=== PATIENT | male | born 1975 | race Caucasian/White ===

== ENCOUNTER 2019-08-10 08:01 | Inpatient (IN) | payer SELFPAY ==
[~2019-08-10] VITALS: Ht 172.7 cm; Wt 123.7 kg
[2019-08-10] MEDS ORDERED: ONDANSETRON PF 4 MG/2 ML VIAL. IVP ONE ×2 (08:15→09:30)
[2019-08-10] MEDS ORDERED: IV NORMAL SALINE 1,000ML 1,000 ML IV ONE (08:15)
--- NOTE | 2019-08-10 08:25 | PHYS DOC ---
General Adult EDM: Chief Complaint: ABDOMINAL PAIN HPI: HPI: 43-year-old male presents with epigastric abdominal pain. He has been having worsening pain for last 3 days. He came in today because the pain became severe last night. Patient has not eaten anything in 3 days. He is a daily vodka drinker. He stopped drinking at 1 PM yesterday because of the epigastric pain. No history of pancreatitis. No history of significant GERD. He denies fever chills. He rates the current pain a 10 out of 10. It is sharp and stabbing. He also has a burning in his throat. He has had several episodes of vomiting. Review of Systems: Review of Systems: Constitutional: Denies fever or chills Eyes: Denies change in visual acuity HENT: Denies nasal congestion or sore throat Respiratory: Denies cough or shortness of breath Cardiovascular: Denies chest pain or edema GI: Epigastric abdominal pain, nausea, vomiting. Denies bloody stools or diarrhea. : Denies dysuria Musculoskeletal: Denies back pain or joint pain Integument: Denies rash Neurologic: Denies headache, focal weakness or sensory changes Endocrine: Denies polyuria or polydipsia Lymphatic: Denies swollen glands Psychiatric: Denies depression or anxiety Heart Score: Risk Factors: Risk Factors: DM, Current or recent (<one month) smoker, HTN, HLP, family history of CAD, obesity. Risk Scores: Score 0 - 3: 2.5% MACE over next 6 weeks - Discharge Home Score 4 - 6: 20.3% MACE over next 6 weeks - Admit for Clinical Observation Score 7 - 10: 72.7% MACE over next 6 weeks - Early Invasive Strategies Current Medications: Current Meds: Current Medications Medications (Trade) Dose Ordered Sig/[facility] Start Time Stop Time Status Last Admin Dose Admin Ondansetron HCl (Zofran) 4 mg 1X ONCE 08/10/19 08:15 08/10/19 08:16 UNV Sodium Chloride 1,000 ml @ 1,000 mls/hr 1X ONCE 08/10/19 08:15 08/10/19 09:14 UNV Physical Exam: PE: Constitutional: Well developed, well nourished, no acute distress, non-toxic appearance. [] HENT: Normocephalic, atraumatic, bilateral external ears normal, oropharynx moist, no oral exudates, nose normal. [] Eyes: PERRLA, EOMI, conjunctiva normal, no discharge. [] Neck: Normal range of motion, no tenderness, supple, no stridor. [] Cardiovascular: Heart rate 104, regular rhythm, no murmur [] Lungs & Thorax: Bilateral breath sounds clear to auscultation [] Abdomen: Bowel sounds normal, soft, epigastric tenderness, no masses, no pulsatile masses. [] Skin: Warm, diaphoretic, no erythema, no rash. [] Back: No tenderness, no CVA tenderness. [] Extremities: No tenderness, no cyanosis, no clubbing, ROM intact, no edema. [] Neurologic: Alert and oriented X 3, normal motor function, normal sensory function, no focal deficits noted. [] Psychologic: Affect normal, judgement normal, mood normal. [] EKG: EKG: Sinus tachycardia, rate 101, normal axis, no ST elevations or depressions. [] Radiology/Procedures: Radiology/Procedures: [] Impressions: AP chest x-ray HISTORY: Epigastric abdominal pain. FINDINGS: Heart size normal. Mediastinal silhouette is normal. No pneumothorax, pulmonary opacities or pleural effusions. Old healed right clavicle fracture deformity. IMPRESSION: No acute process. Electronically signed by: Martin Sweet MD (08/10/2019 8:44 AM) [facility] [place]CT[place] AND SIGNED BY: MARTIN SWEET MD DATE: 08/10/19 0844 CC: ANTONIETTA BOWMAN DO; PCP,NO ~ CT abdomen and pelvis with contrast PQRS statement: CT scans at this facility use dose reduction including either automated exposure control, iterative reconstructions, and /or weight based radiation dosing via mA and kV modification when appropriate to reduce radiation dose to as low as reasonably achievable. Contrast: 75 mL Omnipaque 300 intravenous contrast. HISTORY: Abdominal pain. Abdomen findings: Lung bases unremarkable. Lower lumbar disc disease with disc bulges and disc osteophyte with spinal canal stenoses and neural foraminal stenoses. Hypodense liver likely fatty. Kidneys, adrenals, spleen, gallbladder unremarkable. There is diffuse pancreatic edematous enlargement and peripancreatic stranding edema. Mesenteric and splenic vessels and straight patent contrast enhancement. No pancreatic mass or pseudocyst evident. No pancreatic necrosis evident with intact enhancement of the gland present. No obstruction or inflammation the GI tract. Appendix is negative. No enlarged adenopathy. Pelvis findings: Bladder, prostate, rectum and bones are unremarkable. IMPRESSION: 1. Acute pancreatitis as described above. 2. Appendix is negative. Electronically signed by: Martin Sweet MD (08/10/2019 9:41 AM) [facility] [place]CT[place] AND SIGNED BY: MARTIN SWEET MD DATE: 08/10/19 0941 CC: ANTONIETTA BOWMAN DO; PCP,NO ~ Course & Med Decision Making: Course & Med Decision Making Pertinent Labs and Imaging studies reviewed. (See chart for details) The patient's labs are significant for a lipase of just under 5000. Chest x-ray is unremarkable. EKG is unremarkable. Troponin is negative. CT scan is pending. The patient will be admitted for pancreatitis. I spoke with Dr. Gracia about the patient and he has accepted him for admission. [] Dragon Disclaimer: Dragon Disclaimer: This electronic medical record was generated, in whole or in part, using a voice recognition dictation system. Departure Departure: Impression: Primary Impression: Pancreatitis, alcoholic, acute Qualified Codes: K85.20 - Alcohol induced acute pancreatitis without necrosis or infection Disposition: ADMITTED INPATIENT Admitting Physician: Susan Gracia Condition: STABLE Referrals: PCP,NO (PCP) Justification of Admission: Justification of Admission: Justification of Admission Dx: Yes Comments: ANTONIETTA Ly DO Aug 10, 2019 08:25
[2019-08-10 08:46] LABS: BASO # 0.1 x10^3/uL (0.0-0.2); BASO % 1 % (0-3); EOS # 0.1 x10^3/uL (0.0-0.7); EOS % 1 % (0-3); HEMATOCRIT 51.3 % (39.0-53.0); HEMOGLOBIN 17.9 g/dL (13.0-17.5); LYMPH # 1.5 x10^3/uL (1.0-4.8); LYMPH % 15 % (24-48); MEAN CORPUSCULAR HEMOGLOBIN 34 pg (25-35); MEAN CORPUSCULAR HGB CONC 35 g/dL (31-37); MEAN CORPUSCULAR VOLUME 98 fL (79-100); MONO # 0.9 x10^3/uL (0.0-1.1); MONO % 9 % (0-9); NEUT # 7.4 x10^3uL (1.8-7.7); NEUT % 74 % (31-73); PLATELET COUNT 228 x10^3/uL (140-400); RED BLOOD COUNT 5.26 x10^6/uL (4.30-5.70); RED CELL DISTRIBUTION WIDTH 13.9 % (11.5-14.5)
--- NOTE | 2019-08-10 08:47 | RAD ---
AP chest x-ray HISTORY: Epigastric abdominal pain. FINDINGS: Heart size normal. Mediastinal silhouette is normal. No pneumothorax, pulmonary opacities or pleural effusions. Old healed right clavicle fracture deformity. IMPRESSION: No acute process. Electronically signed by: Martin Sweet MD (08/10/2019 8:44 AM) [facility]
[2019-08-10 08:52] LABS: CALCIUM 9.8 mg/dL (8.5-10.1); CREATININE 1.4 mg/dL (0.7-1.3); GFR 55.8; POTASSIUM 4.3 mmol/L (3.5-5.1)
[2019-08-10 08:59] LABS: ALBUMIN 4.3 g/dL (3.4-5.0); ALBUMIN/GLOBULIN RATIO 1.1 (1.0-1.7); TOTAL PROTEIN 8.2 g/dL (6.4-8.2)
[2019-08-10 09:04] LABS: TOTAL BILIRUBIN 1.9 mg/dL (0.2-1.0)
[2019-08-10] MEDS ORDERED: IOHEXOL 300 MG/ML 75 ML VIAL. IV ONE (09:15)
[2019-08-10] MEDS ORDERED: HYDROmorphone PF 1 MG/ML DISP.SYRIN IV ONE (09:30)
--- NOTE | 2019-08-10 09:44 | RAD ---
CT abdomen and pelvis with contrast PQRS statement: CT scans at this facility use dose reduction including either automated exposure control, iterative reconstructions, and /or weight based radiation dosing via mA and kV modification when appropriate to reduce radiation dose to as low as reasonably achievable. Contrast: 75 mL Omnipaque 300 intravenous contrast. HISTORY: Abdominal pain. Abdomen findings: Lung bases unremarkable. Lower lumbar disc disease with disc bulges and disc osteophyte with spinal canal stenoses and neural foraminal stenoses. Hypodense liver likely fatty. Kidneys, adrenals, spleen, gallbladder unremarkable. There is diffuse pancreatic edematous enlargement and peripancreatic stranding edema. Mesenteric and splenic vessels and straight patent contrast enhancement. No pancreatic mass or pseudocyst evident. No pancreatic necrosis evident with intact enhancement of the gland present. No obstruction or inflammation the GI tract. Appendix is negative. No enlarged adenopathy. Pelvis findings: Bladder, prostate, rectum and bones are unremarkable. IMPRESSION: 1. Acute pancreatitis as described above. 2. Appendix is negative. Electronically signed by: Martin Sweet MD (08/10/2019 9:41 AM) [facility]
[2019-08-10] MEDS ORDERED: ONDANSETRON PF 4 MG/2 ML VIAL. IVP PRN ×2 (10:45→14:00)
[2019-08-10] MEDS ORDERED: HYDROmorphone PF 1 MG/ML DISP.SYRIN IV PRN (10:45)
[2019-08-10] MEDS ORDERED: IV DEXTROSE 5% - 0.9 % NACL 1,000 ML IV ONE (10:45)
--- NOTE | 2019-08-10 12:14 | NUR ---
The patient, DIAMOND PIMENTEL, 43 y/o, M admitted by JANEL RICHARD MD, was given written information regarding hospital policies, unit procedures and contact persons. Valuables were checked and left with patient. Pt complains of pain and asks for something less strong than Dilaudid and reports it is not lasting long enough to help. Pt is Alert and Oriented x 4. Pt requested use of bathroom and was directed to the toilet, pt's gait is steady. Pt reports his last drink was at noon yesterday and usually drinks a pint of vodka and 6 beers daily. PT is pleasant at this time. Alcohol Withdraw Protocol orders placed. Will CTM.
[2019-08-10] MEDS ORDERED: cloNIDine HCL 0.1 MG TABLET PO PRN (12:30)
[2019-08-10] MEDS ORDERED: diphenhydrAMINE 50 MG/ML VIAL IVP PRN (12:30)
[2019-08-10] MEDS ORDERED: HALOPERIDOL LACT 5 MG/ML VIAL. IM PRN (12:30)
[2019-08-10] MEDS ORDERED: HYDROcodone/APAP 5/325MG 1 TAB TABLET PO PRN (14:00)
[2019-08-10] MEDS ORDERED: LABETALOL 20 MG/4 ML DISP.SYRIN. IVP PRN (14:00)
[2019-08-10] MEDS ORDERED: PROCHLORPERAZINE 10 MG/2 ML VIAL. IVP PRN (14:00)
[2019-08-10 14:25] VITALS: BP 174/111
[2019-08-10] MEDS ORDERED: LABETALOL 100 MG/20 ML VIAL. IV ONE (14:35)
[2019-08-10] MEDS: HYDROmorphone PF 2 MG/ML VIAL IV PRN ×3 (14:39→22:03)
[2019-08-10] MEDS: NICOTINE 21MG PATCH. TD SCH (14:39)
[2019-08-10] MEDS ORDERED: chlordiazePOXIDE HCL 25 MG CAPSULE PO PRN (16:45)
[2019-08-10] MEDS: chlordiazePOXIDE HCL 25 MG CAPSULE PO PRN (17:06)
--- NOTE | 2019-08-10 18:42 | NUR ---
pt talked to about poc and that he is more than likely going to detox soon and will need to decide if he is seeking care to help stop drinking. PT is starting to be shaky and continues to have epigastric pain. PT reports that his drinks etoh as well. Sarah BOLANOS
--- NOTE | 2019-08-10 19:01 | HP ---
ADMIT DATE: 08/10/2019 HISTORY OF PRESENT ILLNESS: The patient is a 43-year-old male patient who presented to the Emergency Room complaining of severe epigastric abdominal pain that has been worsening for the last 3 days. He came in today because the pain became severe. He has not eaten anything for the last 3 days. He is a daily vodka drinker. He stopped drinking at 1:00 p.m. yesterday because of epigastric pain. He has never had history of pancreatitis. No history of any significant gastroesophageal reflux disease. He rated his pain 10/10, sharp, stabbing. He also had several episodes of vomiting, but no hematemesis. He was evaluated in the Emergency Room and was found to have markedly elevated serum lipase of 4995. He has also impaired kidney function with creatinine 1.4. His blood sugar was high at 163 and AST, ALT, alkaline phosphatase are slightly elevated; however, his prothrombin time and INR, aPTT were normal. He was clearly dehydrated with hemoglobin of 17.9, hematocrit 51 with normal white cell count and platelets. He was admitted with alcohol-induced pancreatitis. PAST MEDICAL HISTORY: Unremarkable. PAST SURGICAL HISTORY: Also unremarkable. ALLERGIES: He has no known drug allergies. MEDICATIONS: He is currently on no medication. FAMILY HISTORY: Unremarkable. SOCIAL HISTORY: He is , has 2 children of his own and 2 stepsons. He smokes little less than a pack a day. He drinks pint of vodka, 6 packs of beer and has been doing this consistently for the last 5 years, although he started drinking when he was 17 years old. He describes his ___. She is also a heavy drinker. 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 PHYSICAL EXAMINATION: GENERAL: On arrival to the Emergency Room, the patient was clearly distressed. There was no pallor, jaundice, cyanosis or thyromegaly. No jugular venous distention. No lower limb edema. VITAL SIGNS: Her heart rate was 105, blood pressure was 167/124, temperature was 98.1, respiratory rate 26 and oxygen saturation was 98%. HEAD, EYES, EARS, NOSE AND THROAT: Showed normocephalic, atraumatic. NECK: Supple. CARDIAC: Normal first and second heart sounds. No gallop or murmur. ABDOMEN: Distended. Tenderness mostly in the epigastric area. No guarding or rigidity. No organomegaly. All hernial orifice intact. Bowel sounds normal. NEUROLOGIC: He is awake, alert, oriented x 3 with normal motor and sensory function. Affect, judgment and mood were normal. IMAGING: His EKG showed he was in sinus tachycardia with a heart rate of 101 with no evidence of ST segment elevation or depression. His chest x-ray showed the heart size is normal, mediastinal silhouette is normal. No pneumothorax, pulmonary opacities or pleural effusion, has old healed right clavicle fracture deformity. CT scan of the abdomen and pelvis showed that the patient's lung bases are unremarkable. The lower lumbar disk disease with disk bulges and disk osteophyte, spinal canal stenosis and neural foraminal stenosis, has hypodense liver, likely fatty, kidneys, adrenals, spleen, gallbladder unremarkable. There is diffuse pancreatic edematous enlargement and peripancreatic stranding edema, mesenteric and splenic vessels are straight, patent, contrast, enhancement. No pancreatic masses or pseudocyst evident. No pancreatic necrosis evident with intact enhance of the gland present. No obstruction or inflammation of GI tract. The appendix is negative. No enlarged lymphadenopathy. The pelvis showed bladder, prostate, rectum and bones are unremarkable. LABORATORY DATA: Showed a white cell count of 10,000, hemoglobin 18, hematocrit 51, MCV 98 and platelet count of 228,000. His serum sodium was 137, potassium 4.3, chloride 99, bicarbonate 29, anion gap of 9, BUN 10, creatinine 1.4, estimated GFR was 55 mL per minute. His glucose 163, calcium was 9.8. Total bilirubin, AST and ALT are elevated. Alkaline phosphatase is normal. His total protein was 8.2, albumin was 4.3. Serum lipase was 4995. ASSESSMENT AND PLAN: In summary, this is a 43-year-old male patient who was admitted with acute pancreatitis, alcohol-induced. He has also secondary erythrocytosis with hemoglobin of 18, hematocrit of 50, likely due to persistent hypoxemia. He has also morbid obesity and likely obstructive sleep apnea as he weighs 122 kilograms and his body mass index of 41 kilograms square meter. The patient was admitted and was kept n.p.o., continue with IV fluid, pain medications. He has received one banana bag. He is now on a chlordiazepoxide and he is on alcohol withdrawal protocol. We will repeat all his lab work tomorrow and hopefully once his serum lipase normalized, we can start him on a clear liquid and advance as tolerated. JANEL RICHARD MD DR: MIKAELA/nicolas JOB#: [id number] / [id number]
[2019-08-10 19:30] VITALS: BP 140/92
[2019-08-10] MEDS: IV DEXTROSE 5% - 0.9 % NACL 1,000 ML IV SCH (19:42)
[2019-08-10] MEDS: LORazepam 1 MG TABLET PO PRN (19:50)
--- NOTE | 2019-08-10 19:58 | EKG ---
[address] [address] Test Date: 2019-08-10 Test Time: 08:24:29 Pat Name: DIAMOND PIMENTEL Department: Room: [facility] 1 Gender: M Compliance Manager: SINDY : 1975 Requested By: ANTONIETTA BOWMAN Order Number: [id number] Reading MD: Tony Goel Measurements Intervals [place] Rate: 101 P: 47 MO: 132 QRS: 59 QRSD: 92 T: 31 QT: 328 QTc: 426 Interpretive Statements SINUS TACHYCARDIA Electronically Signed On 09-02-2019 10:10:49 CDT by Tony Goel
[2019-08-10 20:00] VITALS: BP 134/91
[2019-08-10 20:52] VITALS: BP 122/88
[2019-08-10 22:00] VITALS: BP 143/86
[2019-08-10 23:00] VITALS: BP 126/93
--- NOTE | 2019-08-10 23:09 | NUR ---
Pt desats on room air. This nurse keeps reminding patient to keep the nasal cannula in. Pt verbalizes understanding. Will continue to monitor.
[2019-08-11] VITALS (16 sets, daily range): BP systolic 98–157; BP diastolic 66–108
[2019-08-11] MEDS: LORazepam 1 MG TABLET PO PRN ×5 (02:30→16:57)
[2019-08-11] MEDS: HYDROmorphone PF 2 MG/ML VIAL IV PRN ×3 (05:02→20:40)
[2019-08-11 07:14] LABS: HEMATOCRIT 46.5 % (39.0-53.0); HEMOGLOBIN 15.9 g/dL (13.0-17.5); RED BLOOD COUNT 4.73 x10^6/uL (4.30-5.70); RED CELL DISTRIBUTION WIDTH 13.3 % (11.5-14.5); WHITE BLOOD COUNT 11.3 x10^3/uL (4.0-11.0)
[2019-08-11 07:26] LABS: ALBUMIN 3.4 g/dL (3.4-5.0); CALCIUM 8.6 mg/dL (8.5-10.1); CREATININE 1.2 mg/dL (0.7-1.3); GFR 66.7; POTASSIUM 4.1 mmol/L (3.5-5.1); TOTAL BILIRUBIN 2.5 mg/dL (0.2-1.0); TOTAL PROTEIN 6.9 g/dL (6.4-8.2)
[2019-08-11] MEDS: HYDROcodone/APAP 5/325MG 1 TAB TABLET PO PRN ×3 (08:22→22:20)
[2019-08-11] MEDS: MVI, ADULT NO.4 WITH VIT K 10 ML, THIAMINE INJ 100 MG, FOLIC ACID INJ 1 MG in IV NORMAL... IV SCH (09:09)
[2019-08-11] MEDS: IV DEXTROSE 5% - 0.9 % NACL 1,000 ML IV SCH ×2 (09:11→22:15)
[2019-08-11] MEDS: NICOTINE 21MG PATCH. TD SCH (09:14)
--- NOTE | 2019-08-11 12:00 | NUR ---
PT WOKE UP AND TRIED TO STAND UP AND URINATED IN HIS PANTS, SO THIS NURSE TOOK HIM TO THE TOILET, AND CHANGED HIS PANTS WHILE HE WAS AWAKE.
[2019-08-11] MEDS ORDERED: BISACODYL 10 MG SUPP.RECT PR PRN (16:15)
--- NOTE | 2019-08-11 19:05 | PN ---
DATE: 08/11/2019 SUBJECTIVE: The patient is almost resting almost flat in bed, in no apparent distress. He denied any nausea, vomiting, abdominal pain is well controlled. He did not have any bowel movement for the last 3 days. His lab work showed that his serum lipase is down from almost 5000 to 3170. His liver enzymes are trending down. PHYSICAL EXAMINATION: GENERAL: When I saw him this afternoon, he looked well and was clearly in no apparent respiratory distress. No pallor, jaundice or cyanosis. No lymphadenopathy, no thyromegaly. No jugular venous distention. No lower limb edema. VITAL SIGNS: Her heart rate was 102, blood pressure was 149/99, temperature 98.6, respiratory rate was 18 and oxygen saturation was 96%. The rest of clinical exam is stable. His intake over the last 24 hours was 1050, output was 275. LABORATORY DATA: Showed a white cell count of 11,300, hemoglobin 15, hematocrit 46, MCV 98 and platelet count of 177,000. His chemistry showed a serum sodium 138, potassium 4.1, chloride 103, bicarbonate 29, anion gap of 6, BUN 10, creatinine 1.2, estimated GFR was 66 mL per minute. His glucose was 138, calcium was 8.6. Total bilirubin 2.5. AST, ALT are elevated. Alkaline phosphatase is normal. His total protein was 6.9, albumin 3.4. Lipase was 3170. ASSESSMENT: 1. Alcohol-induced pancreatitis. 2. Alcohol-induced hepatitis. 3. Alcoholism, alcohol withdrawal 4. Morbid obesity and probably obstructive sleep apnea. JANEL RICHARD MD DR: MIKAELA/nicolas JOB#: [id number] / [id number]
[2019-08-12] MEDS: HYDROmorphone PF 2 MG/ML VIAL IV PRN (01:17)
[2019-08-12] MEDS ORDERED: dilTIAZem 25 MG/5 ML VIAL IVP ONE ×2 (01:51→02:00)
[2019-08-12] MEDS ORDERED: dilTIAZem VIAL 125 MG in IV NORMAL SALINE 100ML 100 ML IV PRN (02:00)
[2019-08-12 02:08] VITALS: BP 145/98
[2019-08-12] MEDS: LORazepam 1 MG TABLET PO PRN (02:39)
--- NOTE | 2019-08-12 05:27 | EKG ---
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
--- NOTE | 2019-08-12 05:28 | EKG ---
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
[2019-08-12] MEDS: HYDROcodone/APAP 5/325MG 1 TAB TABLET PO PRN (05:57)
[2019-08-12 06:01] VITALS: BP 161/95
[2019-08-12 06:29] LABS: ALBUMIN 3.1 g/dL (3.4-5.0); ALBUMIN/GLOBULIN RATIO 0.8 (1.0-1.7); CALCIUM 8.6 mg/dL (8.5-10.1); GFR 82.3; POTASSIUM 4.3 mmol/L (3.5-5.1); TOTAL BILIRUBIN 1.7 mg/dL (0.2-1.0)
[2019-08-12] MEDS: IV DEXTROSE 5% - 0.9 % NACL 1,000 ML IV SCH (08:07)
[2019-08-12] MEDS: NICOTINE 21MG PATCH. TD SCH (08:07)
[2019-08-12] MEDS: chlordiazePOXIDE HCL 25 MG CAPSULE PO PRN (08:16)
[2019-08-12] MEDS: MVI, ADULT NO.4 WITH VIT K 10 ML, THIAMINE INJ 100 MG, FOLIC ACID INJ 1 MG in IV NORMAL... IV SCH (09:05)
--- NOTE | 2019-08-12 10:44 | NUR ---
Patient questioning on if he will be able to go home this evening, states that he has a little abdominal pain but nothing like before. States he was having nausea and vomiting and hasnt eaten in 4 days, patient tried 2 juices this morning and tolerated well. Diet advanced to clear liquid diet. Discussed situation that happened last night with elevated HR and need for oxygen, questioned if he has had a sleep study before and if he would be interested. Patient stated "I have a lot going on right now with my drinking and im not intersted in that." Awaiting for DR Gracia to see patient.
[2019-08-12 12:49] VITALS: BP 162/110
--- NOTE | 2019-08-12 14:42 | NUR ---
Patient standing out at nurses station, states he is ready to go and removed IV and telemetry leads. Dr Gracia here at this time and discussing discharge plan with patient.
--- NOTE | 2019-08-12 14:45 | NUR ---
Patient verbalized discharge instructions give, prescription given for ativan to help with detox. Patient given instructions on sleep apnea and pancreatitis and educated on trying to quit drinking. Patient ambulated off unit with staff at this time.
[2019-08-12] MEDS ORDERED: LORA-254 PO (14:46)
--- NOTE | 2019-08-12 18:23 | DS ---
DATE OF DISCHARGE: 08/12/2019 HOSPITAL COURSE: The patient is a 43-year-old male patient who was admitted with severe abdominal pain, was diagnosed with acute alcohol-induced pancreatitis. His serum lipase was almost 5000. He was initially kept n.p.o. and finally he was advanced his diet. His lipase came down steadily and today was 764. He apparently went into an episode of acute atrial fibrillation with rapid ventricular response, treated with a loading dose of Cardizem and a drip and converted quickly to sinus rhythm. Apparently had these episodes before. His body mass index is 41 kilograms per square meter and has clinically obstructive sleep apnea as he desaturates at night time, and he remained hemodynamically stable with improved pain and acute pancreatitis, a decision was made to discharge him home on a tapering dose of Ativan to assist with his alcohol withdrawal. PHYSICAL EXAMINATION: GENERAL: When I saw him this morning, he looked well and was clearly in no apparent respiratory distress. No pallor, jaundice, cyanosis, or thyromegaly. No jugular venous distension. No lower limb edema. VITAL SIGNS: His heart rate was 101, blood pressure was 162/110, temperature was 98.8, respiratory rate 17 and oxygen saturation was 93% on 2 liters of oxygen. The rest of clinical exam is stable, has not really changed. LABORATORY DATA: This morning showed a serum sodium 136, potassium 4.3, chloride 100, bicarbonate 31, anion gap of 5, BUN 7, creatinine 1, estimated GFR was 82 mL per minute. His glucose 105, calcium was 8.6, magnesium was 1.9. Total bilirubin was 1.7. AST, ALT slightly elevated, but trending down. Alkaline phosphatase is normal. His total protein 7, albumin was 3.1 and serum lipase was 764. White cell count was 11,300, hemoglobin 15.9, hematocrit 45.5, MCV 90 and platelet count of 177,000. DISCHARGE MEDICATIONS: The patient was discharged home on a tapering course of Ativan. He was counseled for alcohol and cigarette and that he needs probably a sleep study as he has clinically severe obstructive sleep apnea. FINAL DISCHARGE DIAGNOSES: 1. Alcohol-induced pancreatitis. 2. Chronic alcoholism. 3. Nicotine dependence. 4. Morbid obesity, obstructive sleep apnea. 5. Paroxysmal atrial fibrillation with rapid ventricular response. JANEL RICHARD MD DR: Donnie JOB#: [id number] / [id number]
== END 2019-08-12 14:45 | disposition home or self-care (01) | DRG 439 ==
LOC: ER 08:01 → ICU 10:35
PROVIDERS: ADMIT Internal Medicine; ATTEND Internal Medicine
DX: K85.20 Alcohol induced acute pancreatitis without necrosis or infection (principal); F10.239 Alcohol dependence with withdrawal, unspecified; Z68.41 Body mass index [BMI] 40.0-44.9, adult; D75.1 Secondary polycythemia; E66.01 Morbid (severe) obesity due to excess calories; E86.0 Dehydration; F17.210 Nicotine dependence, cigarettes, uncomplicated; G47.33 Obstructive sleep apnea (adult) (pediatric); I48.0 Paroxysmal atrial fibrillation; K70.10 Alcoholic hepatitis without ascites; R09.02 Hypoxemia
CPT/HCPCS: 36415; 71045; 74177; 80053; 83690; 83735; 84484; 85025; 85027; 85610; 85730; 93005; 96361; 96374; 96375; 96376; J1170; J1200; J2060; J2405; J3490; J7042; Q9967; 99285-25; J7030

== ENCOUNTER 2020-02-04 10:35 | Inpatient (IN) | payer SELFPAY ==
[~2020-02-04] VITALS: Ht 172.7 cm; Wt 111.5 kg
[~2020-02-04 10:35] MED LIST: LORA-254 PO
--- NOTE | 2020-02-04 10:57 | PHYS DOC ---
Past History Past Medical History: Alcoholism, Pancreatitis Past Surgical History: No Surgical History Alcohol Use: Heavy Adult General HPI HPI Patient is a 44-year-old male presenting for left upper quadrant pain. Onset was yesterday evening without any known inciting event and/or trauma. Vomiting makes better, p.o. intake makes worse. Patient reports focal sharp pain to left upper quadrant area consistent with prior diagnosis of alcohol pancreatitis. Timing of symptoms has been constant since onset but have been exacerbated when trying to consume p.o. food and drink. He has had constant nausea and several episodes of nonbloody nonbilious emesis. Denies fevers, no headache, chest pain, shortness of breath, changes in bladder or bowel function, no known COVID- 19 contact. Reports he initially stopped heavy alcohol consumption when previously diagnosed with alcohol pancreatitis but admits he has been drinking at least 1/5 of vodka daily with last drink yesterday evening Review of Systems Review of Systems Fourteen body systems of review of systems have been reviewed. 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 Pt appears well-developed and well- nourished. Face is flushed and patient is diaphoretic, appears anxious HEENT: Head: Normocephalic and atraumatic. External ears unremarkable, no ortiz sign Conjunctivae and EOM are normal. Pupils are equal, round, and reactive to light. Oropharynx is clear and moist. No hematomas or lacerations or abrasions to face or scalp OP clear, no blood, no malocclusion, dentition intact Nares clear, no nasal septal hematoma Midface stable Neck: C-spine midline nontender, no step-offs Cardiovascular: Tachycardic, regular rhythm and normal heart sounds. Pulmonary/Chest: Effort normal and breath sounds normal. No respiratory distress. No wheezes. CTA bilaterally Abdominal: Soft. Bowel sounds are normal. Pt exhibits no distension. There is tenderness to left upper quadrant area, negative Palmer's and McBurney's, no guarding or rebound present, nonacute abdomen Musculoskeletal: No bony tenderness to extremities, no deformities, full ROM extremities Chest wall stable Pelvis stable and non-tender No vertebral TTP and spine without stepoffs Neurological: Pt is alert and oriented to person, place, and time. Moving all extremities willfully, able to wiggle all fingers and toes Alert and oriented x 3 Sensation grossly intact Skin: Skin is warm and dry. No abrasions, no lacerations. Diaphoretic Psychiatric: Behavior is appropriate for situation. Anxious Current Patient Data Vital Signs Vital Signs Date Time Temp Pulse Resp B/P (MAP) Pulse Ox O2 Delivery O2 Flow Rate FiO2 02/04/20 19:26 Room Air 02/04/20 19:20 18 02/04/20 17:30 95 02/04/20 14:45 98.5 80 157/112 (127) Lab Results Laboratory Tests Test 02/04/20 10:57 02/04/20 10:59 02/04/20 12:04 02/04/20 14:42 White Blood Count 7.9 x10^3/uL (4.0-11.0) Red Blood Count 5.38 x10^6/uL (4.30-5.70) Hemoglobin 17.4 g/dL (13.0-17.5) Hematocrit 51.1 % (39.0-53.0) Mean Corpuscular Volume 95 fL (79-100) Mean Corpuscular Hemoglobin 32 pg (25-35) Mean Corpuscular Hemoglobin Concent 34 g/dL (31-37) Red Cell Distribution Width 12.4 % (11.5-14.5) Platelet Count 249 x10^3/uL (140-400) Neutrophils (%) (Auto) 62 % (31-73) Lymphocytes (%) (Auto) 26 % (24-48) Monocytes (%) (Auto) 9 % (0-9) Eosinophils (%) (Auto) 2 % (0-3) Basophils (%) (Auto) 1 % (0-3) Neutrophils # (Auto) 4.9 x10^3uL (1.8-7.7) Lymphocytes # (Auto) 2.0 x10^3/uL (1.0-4.8) Monocytes # (Auto) 0.7 x10^3/uL (0.0-1.1) Eosinophils # (Auto) 0.2 x10^3/uL (0.0-0.7) Basophils # (Auto) 0.1 x10^3/uL (0.0-0.2) Sodium Level 133 mmol/L (136-145) Potassium Level 4.1 mmol/L (3.5-5.1) Chloride Level 94 mmol/L (98-107) Carbon Dioxide Level 29 mmol/L (21-32) Anion Gap 10 (6-14) Blood Urea Nitrogen 9 mg/dL (8-26) Creatinine 1.1 mg/dL (0.7-1.3) Estimated GFR (Cockcroft-Gault) 73.4 BUN/Creatinine Ratio 8 (6-20) Glucose Level 114 mg/dL (70-99) Lactic Acid Level 2.5 mmol/L (0.4-2.0) 1.5 mmol/L (0.4-2.0) Calcium Level 9.3 mg/dL (8.5-10.1) Total Bilirubin 2.7 mg/dL (0.2-1.0) Aspartate Amino Transf (AST/SGOT) 111 U/L (15-37) Alanine Aminotransferase (ALT/SGPT) 165 U/L (16-63) Alkaline Phosphatase 99 U/L (46-116) Total Protein 7.5 g/dL (6.4-8.2) Albumin 4.2 g/dL (3.4-5.0) Albumin/Globulin Ratio 1.3 (1.0-1.7) Lipase 1381 U/L (73-393) Troponin I Quantitative < 0.017 ng/mL (0-0.055) Urine Collection Type Unknown Urine Color Apoorva Urine Clarity Clear Urine pH 8.5 Urine Specific [place] 1.020 Urine Protein Trace (NEG-TRACE) Urine Glucose (UA) Neg mg/dL (NEG) Urine Ketones (Stick) Trace mg/dL (NEG) Urine Blood Neg (NEG) Urine Nitrite Neg (NEG) Urine Bilirubin Neg (NEG) Urine Urobilinogen Dipstick 0.2 mg/dL (0.2 mg/dL) Urine Leukocyte Esterase Neg (NEG) Urine RBC 0 /HPF (0-2) Urine WBC 0 /HPF (0-4) Urine Squamous Epithelial Cells Occ /LPF Urine Bacteria 0 /HPF (0-FEW) Urine Opiates Screen Pos (NEG) Urine Methadone Screen Neg (NEG) Urine Barbiturates Neg (NEG) Urine Phencyclidine Screen Neg (NEG) Urine Amphetamine/Methamphetamine Neg (NEG) Urine Benzodiazepines Screen Neg (NEG) Urine Cocaine Screen Neg (NEG) Urine Cannabinoids Screen Neg (NEG) Urine Ethyl Alcohol Neg (NEG) EKG EKG EKG ordered and interpreted by myself at 1109 hrs. as sinus rhythm at 91 bpm, unremarkable intervals, no axis deviation, no acute ischemic findings, no STEMI Radiology/Procedures Radiology/Procedures Single view chest dated 02/04/2020: Comparison made to 08/10/2019 Clinical Indication: Left upper quadrant.. Findings: Single upright portable exam of the chest was performed. Heart size and mediastinal contours are within normal limits given technique. The lungs are clear without evidence of focal consolidation. No pleural effusion or pneumothorax. Old healed clavicle fracture on the right, unchanged. Impression:: No acute radiographic abnormality. Electronically signed by: Sinan Walker MD (02/04/2020 11:28 AM) [id number] History: Reason: luq pain, concern for pancreatitis / Spl. Instructions: / History: Comparison: CT August 10, 2019 Technique: Sonographic examination of the abdomen was performed and multiple grayscale and color Doppler static images were obtained. Findings: Liver demonstrates increased echogenicity. The liver measures 17.8 cm. Portal flow is patent. Mild gallbladder sludge. No gallbladder wall thickening or pericholecystic fluid. Common bile duct measures 3 mm in diameter. Visualized pancreas is not well seen due to overlying bowel gas. The right kidney measures 11.9 x 5.4 x 5.9 cm. No hydronephrosis. The left kidney measures 13.2 x 4.4 x 6.1 cm. No hydronephrosis. The spleen measures 11.2 cm. Aorta and IVC not well seen due to overlying bowel gas. IMPRESSION: 1. Mild gallbladder sludge. 2. Increased hepatic echotexture, may indicate steatosis. 3. Pancreas not well identified on ultrasound. Electronically signed by: Richard Lara DO (02/04/2020 12:25 PM) [id number] Heart Score HEART Score for Chest Pain: HEART Score for Chest Pain Response (Comments) Value History Slighlty/Non-Suspicious 0 ECG Normal 0 Age < 45 0 Risk Factors 1 or 2 Risk Factors 1 Troponin < Normal Limit 0 Total 1 Risk Factors: Risk Factors: DM, Current or recent (<one month) smoker, HTN, HLP, family history of CAD, obesity. Risk Scores: Risk Factors: DM, Current or recent (<one month) smoker, HTN, HLP, family history of CAD, obesity. Course & Med Decision Making Course & Med Decision Making Pertinent Labs and Imaging studies reviewed. (See chart for details) Discussed most likely dx ETOH pancreatitis. I discussed case with hospitalist who agreed for admission for continued medical management, NPO status, IVF rehydration and pain control. No indication for abx at present. I discussed plan of care with patient who was amenable, all questions and concerns addressed prior to ED departure to [facility] for admission Nicanor Disclaimer Nicanor Disclaimer This electronic medical record was generated, in whole or in part, using a voice recognition dictation system. Departure Departure: Impression: Primary Impression: Alcohol-induced pancreatitis Disposition: ADMITTED INPT THIS HOSP Admitting Physician: Brennen Biggs Condition: STABLE Referrals: PCP,NO (PCP) KAIA BURGESS DO Feb 04, 2020 10:57
[2020-02-04] MEDS ORDERED: IV NORMAL SALINE 1,000ML 1,000 ML IV SCH (11:00)
[2020-02-04] MEDS ORDERED: HYDROmorphone PF 1 MG/ML DISP.SYRIN IVP ONE ×2 (11:00→13:45)
[2020-02-04] MEDS ORDERED: ONDANSETRON PF 4 MG/2 ML VIAL. IVP ONE (11:00)
[2020-02-04 11:25] LABS: CALCIUM 9.3 mg/dL (8.5-10.1); CREATININE 1.1 mg/dL (0.7-1.3); GFR 73.4; POTASSIUM 4.1 mmol/L (3.5-5.1)
[2020-02-04 11:28] LABS: HEMATOCRIT 51.1 % (39.0-53.0); HEMOGLOBIN 17.4 g/dL (13.0-17.5); MEAN CORPUSCULAR HEMOGLOBIN 32 pg (25-35); MEAN CORPUSCULAR HGB CONC 34 g/dL (31-37); MEAN CORPUSCULAR VOLUME 95 fL (79-100); PLATELET COUNT 249 x10^3/uL (140-400); RED BLOOD COUNT 5.38 x10^6/uL (4.30-5.70); RED CELL DISTRIBUTION WIDTH 12.4 % (11.5-14.5); WHITE BLOOD COUNT 7.9 x10^3/uL (4.0-11.0)
[2020-02-04 11:29] LABS: BASO # 0.1 x10^3/uL (0.0-0.2); BASO % 1 % (0-3); EOS # 0.2 x10^3/uL (0.0-0.7); EOS % 2 % (0-3); LYMPH % 26 % (24-48); MONO # 0.7 x10^3/uL (0.0-1.1); MONO % 9 % (0-9); NEUT # 4.9 x10^3uL (1.8-7.7); NEUT % 62 % (31-73)
--- NOTE | 2020-02-04 11:30 | RAD ---
Single view chest dated 02/04/2020: Comparison made to 08/10/2019 Clinical Indication: Left upper quadrant.. Findings: Single upright portable exam of the chest was performed. Heart size and mediastinal contours are with in normal limits given technique. The lungs are clear without evidence of focal consolidation. No ple ural effusion or pneumothorax. Old healed clavicle fracture on the right, unchanged. Impression:: No acute radiographic abnormality. Electronically signed by: Sinan Walker MD (02/04/2020 11:28 AM) [id number]
[2020-02-04 11:31] LABS: ALBUMIN 4.2 g/dL (3.4-5.0); ALBUMIN/GLOBULIN RATIO 1.3 (1.0-1.7); TOTAL BILIRUBIN 2.7 mg/dL (0.2-1.0); TOTAL PROTEIN 7.5 g/dL (6.4-8.2)
--- NOTE | 2020-02-04 12:28 | RAD ---
US ABDOMEN COMPLETE History: Reason: luq pain, concern for pancreatitis / Spl. Instructions: / History: Comparison: CT August 10, 2019 Technique: Sonographic examination of the abdomen was performed and multiple grayscale and color Dopp ler static images were obtained. Findings: Liver demonstrates increased echogenicity. The liver measures 17.8 cm. Portal flow is patent. Mild gallbladder sludge. No gallbladder wall thickening or pericholecystic fluid. Common bile duct measures 3 mm in diameter. Visualized pancreas is not well seen due to overlying bowel gas. The right kidney measures 11.9 x 5.4 x 5.9 cm. No hydronephrosis. The left kidney measures 13.2 x 4.4 x 6.1 cm. No hydronephrosis. The spleen measures 11.2 cm. Aorta and IVC not well seen due to overlying bowel gas. IMPRESSION: 1. Mild gallbladder sludge. 2. Increased hepatic echotexture, may indicate steatosis. 3. Pancreas not well identified on ultrasound. Electronically signed by: Richard Lara DO (02/04/2020 12:25 PM) [id number]
[2020-02-04 12:31] LABS: AMPHETAMINE/METHAMPHETAMINE NEG (NEG); BARBITURATES NEG (NEG); BENZODIAZEPINES NEG (NEG); CANNABINOIDS NEG (NEG); COCAINE NEG (NEG); METHADONE NEG (NEG); OPIATES POS (NEG); PHENCYCLIDINE NEG (NEG)
[2020-02-04 12:39] LABS: BACTERIA,URINE 0 /HPF (0-FEW); BILIRUBIN,URINE NEG (NEG); CLARITY,URINE CLEAR; COLOR,URINE AMBER; GLUCOSE,URINE NEG (NEG); NITRITE,URINE NEG (NEG); RBC,URINE 0 /HPF (0-2); SQUAMOUS EPITHELIAL CELL,UR OCC /LPF; UROBILINOGEN,URINE 0.2 mg/dL (0.2 mg/dL); WBC,URINE 0 /HPF (0-4)
--- NOTE | 2020-02-04 13:00 | EKG ---
[address] [address] Test Date: 2020-02-04 Test Time: 11:00:30 Pat Name: DIAMOND PIMENTEL Department: Room: Gender: M Massotherapist: VIOLETTA : 1975 Requested By: KAIA BURGESS Order Number: [id number] Reading MD: Measurements Intervals [place] Rate: 91 P: 44 CA: 138 QRS: 49 QRSD: 94 T: 23 QT: 346 QTc: 427 Interpretive Statements SINUS RHYTHM NORMAL ECG RI6.02 No previous ECG available for comparison
[2020-02-04] MEDS ORDERED: IOHEXOL 300 MG/ML 75 ML VIAL. IV ONE (13:30)
[2020-02-04] MEDS ORDERED: ONDANSETRON PF 4 MG/2 ML VIAL. IVP PRN (13:45)
[2020-02-04] MEDS ORDERED: IV NORMAL SALINE 1,000ML 1,000 ML IV ONE (13:45)
[2020-02-04 14:45] VITALS: BP 157/112
[2020-02-04] MEDS: MORPHINE SULFATE 2 MG/ML DISP.SYRIN. IVP PRN ×3 (14:59→19:20)
[2020-02-04] MEDS: IV NORMAL SALINE 1,000ML 1,000 ML IV SCH (16:57)
--- NOTE | 2020-02-04 17:12 | HP ---
ADMIT DATE: 02/04/2020 ATTENDING PHYSICIAN: Dr. Arriaza. CHIEF COMPLAINT: Abdominal pain. HISTORY OF PRESENT ILLNESS: The patient is a 44-year-old gentleman, chronic alcoholic, who has worsening abdominal pain, nausea, unable to keep any foods down. He has been drinking a fifth of vodka daily, last drink yesterday evening. He has had previous admissions for pancreatitis related to alcohol. He has not had any seizure disorders. There is no recent COVID contact. In the ED, his lipase was elevated. Ultrasound showed no obstruction. He has gallbladder ____, increased hepatic echotexture indicating steatosis. Pancreas is not well identified. PAST MEDICAL HISTORY: Significant for hypertension, noncompliance, chronic alcoholism. COPD. SOCIAL HISTORY: Heavy drinker, a fifth of vodka a day. He is a smoker. He has had previous alcohol-induced pancreatitis. He has also had paroxysmal atrial fibrillation. ALLERGIES: He has no known drug allergies. CURRENT MEDICATIONS: None. He has no local physician. FAMILY HISTORY: Mom is alive at age 68. She has COPD. Father is alive at age 72. 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 REVIEW OF SYSTEMS: Significant for the GI symptoms. No fevers, chills, bloody stools, hematemesis, blood transfusion or COVID exposure. All other systems reviewed and turned to be negative. PHYSICAL EXAMINATION: GENERAL: When I saw him, this is a young male who was uncomfortable. VITAL SIGNS: His initial blood pressure was 157/112, pulse 80 and regular, temperature 98.5 degrees Fahrenheit, oxygen saturation 95% on room air. HEENT: Head is without trauma. Pupils are reactive. Sclerae nonicteric. Oropharynx clear. NECK: Supple, no bruits identified. LUNGS: Good breath sounds. CARDIOVASCULAR: Showed regular heart tones. No gallops. ABDOMEN: Soft. Minimal guarding in the epigastrium. There is no rebound tenderness. Bowel sounds are hypoactive. EXTREMITIES: Showed no cyanosis or edema. NEUROLOGIC: Focally intact. There is no impending delirium tremens at this time. Speech is fluent. He has no rigidity. SKIN: Warm and dry. PERTINENT LABORATORY STUDIES: Hemoglobin is 17.4 g/dL with a white count of 7900. Electrolytes, creatinine is 1.1. Nonfasting blood sugar 114. Total bilirubin 2.7. Transaminases, AST 111, ALT 165 respectively. Lipase is 1381. Urinalysis showed a pH of 8.5, otherwise clear. ASSESSMENT: 1. A 44-year-old gentleman with chronic alcoholism. 2. Alcoholic pancreatitis. 3. Associated abdominal pain and nausea. 4. Labile hypertension. 5. Chronic obstructive pulmonary disease. 6. Noncompliance of meds. PLAN: 1. Admit to the inpatient unit. 2. N.p.o. 3. Pain and nausea control. 4. IV hydration. 5. Advance diet as tolerated. HAWA ARRIAZA MD DR: CECE/nicolas JOB#: [id number] / [id number]
[2020-02-04] MEDS: HYDROmorphone PF 1 MG/ML DISP.SYRIN IVP PRN ×2 (20:10→22:15)
[2020-02-04 20:38] VITALS: BP 154/105
[2020-02-04 22:06] VITALS: BP 155/106
[2020-02-05] MEDS: HYDROmorphone PF 1 MG/ML DISP.SYRIN IVP PRN ×11 (00:17→22:11)
[2020-02-05] MEDS: IV NORMAL SALINE 1,000ML 1,000 ML IV SCH ×3 (02:38→22:54)
[2020-02-05 05:32] VITALS: BP 159/93
[2020-02-05 11:02] VITALS: BP 133/90
[2020-02-05] MEDS ORDERED: LORazepam 1 MG TABLET PO PRN (14:30)
[2020-02-05] MEDS ORDERED: chlordiazePOXIDE HCL 25 MG CAPSULE PO PRN (14:30)
[2020-02-05] MEDS ORDERED: HALOPERIDOL LACT 5 MG/ML VIAL. IM PRN (14:30)
[2020-02-05 14:44] VITALS: BP 131/90
[2020-02-05 14:58] LABS: CALCIUM 8.2 mg/dL (8.5-10.1); CREATININE 0.9 mg/dL (0.7-1.3); GFR 92.5; POTASSIUM 3.7 mmol/L (3.5-5.1)
[2020-02-05 15:04] LABS: ALBUMIN 3.4 g/dL (3.4-5.0); TOTAL BILIRUBIN 2.9 mg/dL (0.2-1.0); TOTAL PROTEIN 6.7 g/dL (6.4-8.2)
[2020-02-05] MEDS: NICOTINE 21MG PATCH. TD SCH (16:14)
[2020-02-05 19:37] VITALS: BP 161/108
[2020-02-05] MEDS ORDERED: diphenhydrAMINE 50 MG/ML VIAL IVP PRN (22:45)
[2020-02-05 23:06] VITALS: BP_SYST 117; BP_SYST 150; BP_DIAS 70; BP_DIAS 93
[2020-02-06] MEDS: HYDROmorphone PF 1 MG/ML DISP.SYRIN IVP PRN ×7 (01:08→21:11)
[2020-02-06 06:24] VITALS: BP 141/96
[2020-02-06 06:58] LABS: CALCIUM 8.7 mg/dL (8.5-10.1); CREATININE 0.9 mg/dL (0.7-1.3); GFR 92.5; POTASSIUM 3.8 mmol/L (3.5-5.1)
[2020-02-06 07:04] LABS: ALBUMIN 3.3 g/dL (3.4-5.0); ALBUMIN/GLOBULIN RATIO 0.9 (1.0-1.7); TOTAL BILIRUBIN 2.7 mg/dL (0.2-1.0); TOTAL PROTEIN 6.9 g/dL (6.4-8.2)
[2020-02-06 08:07] LABS: HEMATOCRIT 43.3 % (39.0-53.0); HEMOGLOBIN 14.7 g/dL (13.0-17.5); RED BLOOD COUNT 4.46 x10^6/uL (4.30-5.70); RED CELL DISTRIBUTION WIDTH 12.2 % (11.5-14.5); WHITE BLOOD COUNT 9.7 x10^3/uL (4.0-11.0)
[2020-02-06] MEDS: IV NORMAL SALINE 1,000ML 1,000 ML IV SCH ×2 (08:15→18:20)
[2020-02-06] MEDS: NICOTINE 21MG PATCH. TD SCH (08:56)
[2020-02-06] MEDS ORDERED: MVI, ADULT NO.4 WITH VIT K 10 ML, THIAMINE INJ 100 MG, FOLIC ACID INJ 1 MG in IV NORMAL... IV SCH (09:00)
--- NOTE | 2020-02-06 09:32 | PN ---
DATE: 02/05/2020 SUBJECTIVE: The patient is resting, slightly propped up in bed, in no apparent distress. On questioning him, he denied any nausea or vomiting. His pain is well controlled as long as he takes hydromorphone every 2 hours. Denied any diarrhea. PHYSICAL EXAMINATION: GENERAL: When I examined him, he looked well and was clearly in no apparent respiratory distress. No pallor, jaundice, cyanosis or thyromegaly. No jugular venous distention. No limb edema. VITAL SIGNS: His heart rate was 95, blood pressure was 133/90, temperature was 98, respiratory rate was 20, and oxygen saturation was 92% on room air. HEENT: Showed normocephalic, atraumatic. NECK: Supple. HEART: Showed normal first and second heart sounds. No gallop, rub or murmur. CHEST: Clear to auscultation. No crepitation or rhonchi. ABDOMEN: Distended, soft, with tenderness mostly in the epigastric area. No guarding or rigidity. No organomegaly. All hernial orifice intact. Bowel sounds normal. NEUROLOGIC: He was awake, alert, responding appropriately. All his cranial nerves are intact. He moves extremities without difficulty. His intake and output incompletely recorded. LABORATORY DATA: Today's labs are still pending at the time of this dictation. ASSESSMENT: 1. Alcohol-induced pancreatitis. 2. Chronic alcoholism. 3. Labile hypertension, although this could be manifestation of withdrawal from alcohol as he last drank was about 2 days ago, apparently is known to have chronic obstructive pulmonary disease. PLAN: To start him on alcohol withdrawal protocol. Start him on also banana bag. We will follow his lab work. He apparently has had abdominal ultrasound which showed mild gallbladder sludge, increased hepatic echotexture, may indicate steatosis. The pancreas was not well identified on ultrasound. There is no thickening of the gallbladder with gallbladder wall or pericholecystic fluid. Common bile duct measures only 3 mm in diameter. His right kidney is 11.9 x 5.4 x 5.9 with no hydronephrosis. His left kidney measures 13.2 x 4.4 x 6.1 with no hydronephrosis. Spleen measures about 11.2 cm. The aorta and IVC filter are not well seen due to overlying bowel gas. JANEL RICHARD MD DR: MIKAELA/nicolas JOB#: [id number] / [id number]
[2020-02-06 10:39] VITALS: BP 133/92
[2020-02-06 15:12] VITALS: BP 127/86
[2020-02-07] MEDS: HYDROmorphone PF 1 MG/ML DISP.SYRIN IVP PRN ×3 (01:55→07:57)
[2020-02-07] MEDS: IV NORMAL SALINE 1,000ML 1,000 ML IV SCH (05:04)
[2020-02-07 05:59] VITALS: BP 128/89
[2020-02-07 07:32] LABS: ALBUMIN 3.1 g/dL (3.4-5.0); ALBUMIN/GLOBULIN RATIO 0.8 (1.0-1.7); CALCIUM 8.4 mg/dL (8.5-10.1); CREATININE 0.8 mg/dL (0.7-1.3); POTASSIUM 4.1 mmol/L (3.5-5.1); TOTAL BILIRUBIN 1.9 mg/dL (0.2-1.0); TOTAL PROTEIN 7.2 g/dL (6.4-8.2)
[2020-02-07] MEDS: NICOTINE 21MG PATCH. TD SCH (07:53)
--- NOTE | 2020-02-07 09:17 | PN ---
DATE: 02/06/2020 SUBJECTIVE: The patient is sitting at the edge of the bed comfortably in no apparent distress. He continued to complain of abdominal pain; however, his serum lipase is trending down as well as his liver enzymes. Our plan is to start him on a clear liquid diet and advanced as tolerated and once he is able to tolerate his diet without any problem, he can be discharged home with clear instruction that he needs to quit drinking alcohol as this is a second episode of severe alcohol-induced pancreatitis. PHYSICAL EXAMINATION: GENERAL: When I examined him this afternoon, he looked well and was clearly in no apparent respiratory distress. No pallor, jaundice, cyanosis or thyromegaly. No jugular venous distention. No limb edema. VITAL SIGNS: His heart rate was 99, blood pressure was 133/92, temperature 97.1, respiratory rate was 18 and oxygen saturation was 93%. HEENT: Normocephalic, atraumatic. NECK: Supple. HEART: Showed normal first and second heart sounds with no gallop, rub or murmur. CHEST: Clear to auscultation. No crepitation or rhonchi. ABDOMEN: Distended, soft, nontender. NEUROLOGIC: He was awake, alert, responding appropriately. All cranial nerves are intact. He moves extremities without difficulty, ambulates without assistance or assistive devices. His intake and output are incompletely recorded. LABORATORY DATA: His lab work this morning showed a serum sodium 133, potassium 3.8, chloride 98, bicarbonate 24, anion gap of 11, BUN 7, creatinine 0.9, estimated GFR was 92 mL per minute. His glucose was 68, calcium was 8.7. His total bilirubin, AST and ALT are slightly elevated. Alkaline phosphatase is normal. Total protein 6.9, albumin 3.3. Serum lipase was 773. ASSESSMENT: 1. Alcohol-induced pancreatitis. This is actually the 2nd admission. 2. Chronic alcoholism. 3. Labile hypertension, which could be partly the manifestation of withdrawal from alcohol. 4. Chronic obstructive pulmonary disease. 5. Nicotine dependence. PLAN: To continue with pain medication. Continue with the banana bag. Continue with alcohol withdrawal protocol. Start liquid diet and advance as tolerated. We will hopefully discharge him home tomorrow. JANEL RICHARD MD DR: MIKAELA/nicolas JOB#: [id number] / [id number]
[2020-02-07 10:39] VITALS: BP 142/98
== END 2020-02-07 11:45 | disposition left against medical advice (07) | DRG 440 ==
LOC: ER 10:35 → 1 SOUTH 14:36
PROVIDERS: ADMIT Hospitalist; ATTEND Hospitalist
DX: K85.20 Alcohol induced acute pancreatitis without necrosis or infection (principal); F10.20 Alcohol dependence, uncomplicated; F17.200 Nicotine dependence, unspecified, uncomplicated; I10 Essential (primary) hypertension; I48.0 Paroxysmal atrial fibrillation; J44.9 Chronic obstructive pulmonary disease, unspecified; K82.8 Other specified diseases of gallbladder; Y90.9 Presence of alcohol in blood, level not specified; Z82.5 Family history of asthma and other chronic lower respiratory diseases; Z91.14 Patient's other noncompliance with medication regimen; Z56.0 Unemployment, unspecified
CPT/HCPCS: 36415; 71045; 74177; 76700; 80053; 80307; 81001; 83605; 83690; 84484; 85025; 85027; 87040; 93005; 96361; 96374; 96375; 96376; J1170; J1200; J2060; J2270; J2405; 99285-25; J7030

== ENCOUNTER 2020-03-06 01:32 | Emergency (ER) | payer SELFPAY ==
[~2020-03-06] VITALS: Ht 172.7 cm; Wt 101.8 kg
--- NOTE | 2020-03-06 01:42 | PHYS DOC ---
Past History Past Medical History: Alcoholism, Pancreatitis (DILAN LONDONO DO) Past Surgical History: Other Additional Past Surgical Histo: L WRIST (DILAN LONDONO DO) Alcohol Use: Heavy (DILAN LONDONO DO) General Adult HPI: HPI: 44-year-old male past medical history significant for alcoholism and history of pancreatitis, presents to the ED brought in by EMS with complaints of "I don't know how I'm going to live without her, I don't want to live." When asked if he's suicidal, pt pauses and states "I don't know how to ansewr that." Denies any prior history of depression, suicidal ideations or suicide attempts. Has never been admitted to a psych facility. EMS notifies us that patient's within the past few hours, was found on stairs with head laceration, epistaxis and rigor mortis. Pt states "I found her at the bottom of the stairs, she was warm, but now she's ." States he went to bed around 10pm and that's the last time he saw her acting appropriately. States they both drink heavily and he recently relapsed (was trying to stop drinking). Pt also smokes tobacco b ut denies any IVDU or illicit drug use. Admits to drinking alcohol earlier tonight before doing to bed. No h/o alcohol withdrawal/seizures but reports h/o pancreatitis. Takes no routine medications. Denies any arguments or fighting with his of 6 years. Denies any homicidal ideations or hallucinations. Pt states "she had so many medical problems "she drinks alcohol daily, thyroid problems and anemia." Does not recall hearing any loud noises/thuds. (DILAN LONDONO DO) Review of Systems: Review of Systems: Constitutional: Denies fever or chills Eyes: Denies change in visual acuity HENT: Denies nasal congestion or sore throat Respiratory: Denies cough or shortness of breath Cardiovascular: Denies chest pain or edema GI: Denies abdominal pain, nausea, vomiting, bloody stools or diarrhea : Denies dysuria or hematuria Musculoskeletal: Denies back pain or joint pain Integument: Denies rash or diaphoresis Neurologic: Denies headache, focal weakness or sensory changes Endocrine: Denies polyuria or polydipsia Lymphatic: Denies swollen glands Psychiatric: Denies homicidal ideations or anxiety (DILAN LONDONO ) Allergies: Allergies: Allergies Coded Allergies Type Severity Reaction Last Updated Verified No Known Drug Allergies 08/10/19 No (DILAN LONDONO ) Physical Exam: PE: Constitutional: Nontoxic appearing, smells of alcohol HENT: Normocephalic, atraumatic, Eyes: EOMI, conjunctiva normal, no discharge. Neck: Normal range of motion, supple, Cardiovascular: S1/2 present, tachycardic Lungs & Thorax: Speaking in full sentences, bilateral equal chest rise, no tachypnea or increased work of breathing Abdomen: soft, no tenderness, Skin: Warm, dry, no erythema, no rash. [] Back: No midline back pain or CVA tenderness Extremities: No tenderness, no cyanosis, no edema Neurologic: Alert and oriented X 3, normal motor function, normal sensory function, no focal deficits noted. [] Psychologic: depressed mood, very tearful/emotional when recalling details of finding his on the stairs (DILAN LONDONO DO) PE: Physical exam: Constitutional no acute distress, resting comfortably in examination room HEENT. Head normocephalic and atraumatic, pupils equal round and reactive to light, extraocular movements intact, no scleral icterus or erythema, mucous membranes moist CV: Palpable pulse with a nl rate and regular rhythm. Respiratory: Not in any respiratory distress breathing comfortably Abdomen: Soft nontender without rebound tenderness or guarding. Negative [place]'s point. Negative Palmer sign. Nondistended. Skin: Normal color Psych: Makes eye contact, affect congruent with mood Neuro exam: Mental status: Awake oriented and alert x3 Cranial nerves: Extraocular movements intact, eyebrows jethro bilaterally, smile symmetric, uvula elevation nl, shoulder shrug intact bilaterally, tongue protrusion normal Sensation: equal and normal in all extremities Strength: 5/5 in upper and lower extremities bilaterally psych Examination: General appearance and behavior: well groomed, maintains good eye contact Speech: normal rate and flow, not pressured Affect: congruent with mood Mood: sad Perception: no illusions or hallucinations Safety: currently not suicidal, homicidal, self-injurious ideas, impulses, or plans Cognition - Level of consciousness: awake - Orientation: oriented to person, place and time - Attention and concentration: nl - Memory (registration, recent and remote): nl - Judgment: demonstrates understanding of personal issues with appropriate ways of solving them - Insight: able to self reflect (SEYMUOR COLE MD) EKG: EKG: [] (DILAN LONDONO DO) Radiology/Procedures: Radiology/Procedures: [] (DILAN LONDONO DO) Heart Score: Risk Factors: Risk Factors: DM, Current or recent (<one month) smoker, HTN, HLP, family history of CAD, obesity. Risk Scores: Score 0 - 3: 2.5% MACE over next 6 weeks - Discharge Home Score 4 - 6: 20.3% MACE over next 6 weeks - Admit for Clinical Observation Score 7 - 10: 72.7% MACE over next 6 weeks - Early Invasive Strategies (DILAN LONDONO DO) Course & Med Decision Making: Course & Med Decision Making Pertinent Labs and Imaging studies reviewed. (See chart for details) Concern for being suicidal statements with no specific plan in the setting of alcohol intoxication and acute grief reaction. Police report filed and patient's family were present and supportive in the ED. Ativan given to calm patient. Patient also tachycardic and was treated with thiamine, multivitamin, folic acid and IV fluids. Patient is now medically cleared and awaiting PAT team assessment-likely not available until after 6/6:30am due to other assessments at [facility]. Rapid covid pending. Pt sleeping comfortably. Pt remains on 1:1 close observation. Will start maintenance fluids and observe for any alcohol withdrawal/DTs. HR in 110s. Due to shift change pt was signed out to . (DILAN LONDONO DO) Course & Med Decision Making 44-year-old male presented to the emergency department today after finding his . He had an episode where he was not sure how to answer whether he was suicidal or not earlier today while he was intoxicated. On my shift I went to evaluate him he is no longer intoxicated and does not have slurred speech and is able to ambulate on his own accord without any difficulty. He is lucid. He is extremely sad about his 's and is grieving. He denies wanting to hurt himself or commit suicide. He does not have a plan. We had our psychiatric assessment team evaluate the patient and help assist the patient with resources along with creating a safety plan. The patient is going to go home with his parents for now and they will watch him. He is to return if he has any thoughts of suicide or is concerned for any reason. His parents are to call 911 if they are concerned for him for any reason. (SEYMOUR COLE MD) Dragon Disclaimer: Dragon Disclaimer: This electronic medical record was generated, in whole or in part, using a voice recognition dictation system. (DILAN LONDONO DO) Departure Departure: Impression: Primary Impression: Alcohol intoxication Additional Impression: Grief reaction Disposition: 01 DC HOME SELF CARE/HOMELESS Condition: STABLE Referrals: PCP,NO (PCP) Patient Instructions: Suicidal Feelings, How to Help Yourself DILAN LONDONO DO Mar 06, 2020 01:42 SEYMOUR COLE MD Mar 06, 2020 07:42
[2020-03-06] MEDS ORDERED: MVI, ADULT NO.4 WITH VIT K 10 ML, FOLIC ACID INJ 1 MG, THIAMINE INJ 100 MG in IV RINGER... IV ONE (02:00)
[2020-03-06 02:21] LABS: AMPHETAMINE/METHAMPHETAMINE NEG (NEG); BARBITURATES NEG (NEG); BENZODIAZEPINES NEG (NEG); CALCIUM 9.2 mg/dL (8.5-10.1); CANNABINOIDS NEG (NEG); COCAINE NEG (NEG); CREATININE 1.1 mg/dL (0.7-1.3); GFR 73.4; METHADONE NEG (NEG); OPIATES NEG (NEG); PHENCYCLIDINE NEG (NEG); POTASSIUM 3.6 mmol/L (3.5-5.1)
[2020-03-06 02:25] LABS: ACETAMIN < 2.0 mcg/mL (10-30); ETHANOL 242 mg/dL (0-10); SALIC 4.4 mg/dL (2.8-20.0)
[2020-03-06 02:27] LABS: ALBUMIN 4.5 g/dL (3.4-5.0); ALBUMIN/GLOBULIN RATIO 1.3 (1.0-1.7); TOTAL BILIRUBIN 0.4 mg/dL (0.2-1.0)
[2020-03-06] MEDS ORDERED: THIAMINE 100 MG TABLET. PO ONE (02:30)
[2020-03-06] MEDS ORDERED: MULTIVITAMIN with MINERAL TABLET. PO ONE (02:30)
[2020-03-06] MEDS ORDERED: IV NORMAL SALINE 1,000ML 1,000 ML IV ONE ×3 (02:30→04:30)
[2020-03-06] MEDS ORDERED: FOLIC ACID 1 MG TABLET PO ONE (02:30)
[2020-03-06] MEDS ORDERED: ONDANSETRON PF 4 MG/2 ML VIAL. IVP ONE (02:30)
[2020-03-06 02:42] LABS: BASO # 0.1 x10^3/uL (0.0-0.2); BASO % 1 % (0-3); EOS # 0.2 x10^3/uL (0.0-0.7); EOS % 2 % (0-3); HEMATOCRIT 51.5 % (39.0-53.0); HEMOGLOBIN 17.8 g/dL (13.0-17.5); LYMPH # 4.3 x10^3/uL (1.0-4.8); LYMPH % 40 % (24-48); MEAN CORPUSCULAR HEMOGLOBIN 32 pg (25-35); MEAN CORPUSCULAR HGB CONC 35 g/dL (31-37); MEAN CORPUSCULAR VOLUME 92 fL (79-100); MONO # 0.8 x10^3/uL (0.0-1.1); MONO % 7 % (0-9); NEUT # 5.5 x10^3uL (1.8-7.7); NEUT % 51 % (31-73); PLATELET COUNT 270 x10^3/uL (140-400); RED CELL DISTRIBUTION WIDTH 12.4 % (11.5-14.5); WHITE BLOOD COUNT 10.7 x10^3/uL (4.0-11.0)
[2020-03-06 07:37] VITALS: BP 118/68
--- NOTE | 2020-03-09 10:25 | NUR ---
IP: notified patient of COVID result.
== END 2020-03-06 07:50 | disposition home or self-care (01) ==
LOC: ER 01:32
DX: F10.229 Alcohol dependence with intoxication, unspecified (principal); F43.20 Adjustment disorder, unspecified; Z20.822 Contact with and (suspected) exposure to COVID-19; Y90.8 Blood alcohol level of 240 mg/100 ml or more
CPT/HCPCS: 36415; 80053; 80307; 80329; 83690; 85025; 87426; 96361; 96374; 96375; 99284; C9803; G0480; J2060; J2405; J7030; U0003